=== PATIENT | male | born 1950 | race Hispanic/Latino ===

== ENCOUNTER 2020-10-06 10:40 | Emergency (ER) | payer OTHER ==
[2020-10-06 11:00] LABS: BILIRUBIN,URINE Negative (NEGATIVE); COLOR,URINE Yellow (YELLOW); GLUCOSE, URINE (UA) Negative (NEGATIVE); KETONES,URINE 15 mg/dL (NEGATIVE); LEUKOCYTE ESTERASE ,URINE Negative (NEGATIVE); NITRATE,URINE Negative (NEGATIVE); OCCULT BLOOD,URINE Negative (NEGATIVE); PROTEIN,URINE Negative (NEGATIVE); UROBILINOGEN,URINE 0.2 mg/dL (0.2-1.0)
[2020-10-06 11:16] LABS: APPEARANCE,URINE CLEAR (CLEAR)
[2020-10-06] MEDS ORDERED: KETOROLAC TROMETHAMINE 30MG/ML ONE ×2 (11:21→11:27)
[2020-10-06 11:36] LABS: BACTERIA,URINE Few /HPF (None Seen)
[2020-10-06 11:37] LABS: RBC,URINE 0-1 /HPF (0-1); SQUAMOUS EPITHELIAL CELL,UR 0-2 /HPF (0-2); WBC,URINE 0-1 /HPF (0-1)
[2020-10-06 11:41] LABS: BASOPHILS % (AUTO) 0.6 % (0.0-5.0); EOSINOPHILS % (AUTO) 6.9 % (0.0-8.0); MEAN CORPUSCULAR HEMOGLOBIN 33.3 pg (27.0-33.0); MEAN CORPUSCULAR HGB CONC 34.9 g/dL (32.0-36.0); MEAN CORPUSCULAR VOLUME 95.6 fL (79-99); NEUTROPHILS % (AUTO) 67.3 % (40.0-77.0); PLATELET COUNT (AUTO) 197 K/uL (130-400); WHITE BLOOD COUNT (AUTO) 8.3 K/uL (4.8-10.8)
[2020-10-06 11:51] LABS: POTASSIUM 4.7 mmol/L (3.5-5.1)
[2020-10-06] MEDS ORDERED: IOHEXOL 350 MG/ML 100ML INFUS..BTL IV ONE (11:59)
== END 2020-10-06 13:29 | disposition home or self-care (01) ==
LOC: EDH 10:40
DX: K57.32 Diverticulitis of large intestine without perforation or abscess without bleeding (principal); M54.5 Low back pain; F44.5 Conversion disorder with seizures or convulsions; Z72.0 Tobacco use
CPT/HCPCS: 36415; 72110; 74177; 80048; 81001; 84484; 85025; 93005; 96372; 99285; J1885 ×2; Q9967

== ENCOUNTER 2021-03-23 10:58 | Emergency (ER) | payer OTHER ==
[~2021-03-23] VITALS: Ht 167.6 cm; Wt 81.6 kg
[2021-03-23 11:17] VITALS: BP 135/70
[2021-03-23] MEDS ORDERED: HYDROCODONE/ACETAMINOPHEN 5/325 MG TAB PO SCH (12:00)
[2021-03-23] MEDS ORDERED: CEPH500B PO (12:56)
[2021-03-23] MEDS ORDERED: CEPHALEXIN 500 MG CAPSULE PO ONE (13:00)
[2021-03-23 13:38] VITALS: BP 152/80
== END 2021-03-23 13:39 | disposition home or self-care (01) ==
LOC: EDH 10:58
DX: S61.412A Laceration without foreign body of left hand, initial encounter (principal); L03.114 Cellulitis of left upper limb; S09.92XA Unspecified injury of nose, initial encounter; G40.909 Epilepsy, unspecified, not intractable, without status epilepticus; W01.0XXA Fall on same level from slipping, tripping and stumbling without subsequent striking against object, initial encounter; Y93.89 Activity, other specified; Y92.89 Other specified places as the place of occurrence of the external cause; Y99.8 Other external cause status
CPT/HCPCS: 70450; 73130

== ENCOUNTER → 2022-11-20 | Outpatient (CLI) | payer OTHER ==
[~2022-11-20] MED LIST: CEPH500B PO
== END | disposition home or self-care (01) ==
LOC: RAH 13:49
PROVIDERS: ATTEND Internal Medicine Cardiovascular Disease
DX: Z13.6 Encounter for screening for cardiovascular disorders (principal); R93.1 Abnormal findings on diagnostic imaging of heart and coronary circulation
CPT/HCPCS: 75571

== ENCOUNTER 2024-09-18 20:54 | Emergency (ER) | payer OTHER ==
[~2024-09-18] VITALS: Ht 167.6 cm; Wt 80.3 kg
[~2024-09-18 20:54] MED LIST changes: +ACET-2079 PO; +AMLO-257 PO; -CEPH500B PO; +DICL20GE TP; +PHEN200C5 PO
--- NOTE | 2024-09-18 21:24 | EKG ---
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
--- NOTE | 2024-09-18 21:28 | ERN ---
ED Note History of Present Illness Stated Complaint: C/O FATIGUE,NO APETITE,N X V, DIARRHEA ONSET YESTE Chief Complaint: Weakness Time Seen by MD: 20:57 Time Seen by Midlevel: 20:57 Dictation: Patient is a 73-year-old male with a history of TBI, seizures, appendectomy, s/p cholecystectomy on Aug, 2024 5 in [facility] in [facility] by DR. Neris Mata. Who presents to the emergency department with complaints of right upper abdominal pain, dizziness, fatigue, decreased appetite onset two days ago. Patient reports nonbloody vomiting, nonbloody diarrhea x2. Reports some nasal congestion. Denies any fevers. Allergies: Coded Allergies: No Known Allergies (Unverified Allergy, Unknown, 10/06/20) Home Meds Active Scripts Acetaminophen with Codeine (Acetaminophen-Cod #3 Tablet) 1 Each Tablet, 1 EACH PO Q4HPRN PRN for PAIN LEVEL 7 TO 10 for 10 Days, #15 TAB Prov:WINNIE ANNE HANDBELL CHOIR DIRECTOR 01/22/23 Reported Medications Diclofenac Sodium (Voltaren Arthritis Pain) 20 Gm Gel..gram., 4 GM TP Q4HPRN PRN for BACK PAIN 01/05/23 Amlodipine Besylate (Amlodipine Besylate) 5 Mg Tablet, 5 MG PO BID, TAB 01/05/23 Phenytoin Sodium Extended (Phenytoin Sodium Extended) 200 Mg Capsule, 200 MG PO BID, CAP 01/05/23 Past Medical History Past Medical History: Hypertension, Seizure, Other Additional Past Medical Hx: HX OF TBI Surgical History: Cholecystectomy Family History: Negative Social History: Negative RN Note Reviewed/Agreed w/PFSH: Yes Review of System Dictation Constitutional: Negative for fever,chills, and weight loss Eyes: Negative for injury, pain,redness, and discharge ENT: Negative for injury,pain or swelling possible for nasal congestion Cardiovascular: Negative for chest pain, palpitations, and edema Respiratory: Negative for shortness of breath, , and wheezing, positive for cough Abdomen/GI: Negative for and constipation positive for abdominal pain, nausea, vomiting, diarrhea Back: Negative for injury and pain : Negative for injury, bleeding and discharge MS/Extremity: Negative for injury and deformity Skin: Negative for rash, and discoloration Neuro: Negative for headache,, numbness, tingling, and seizure positive for weakness Psych: Negative for suicide ideation, homicidal ideation, and hallucinations Initial Vital Sign VS Vital Signs Date Time Temp Pulse Resp B/P (MAP) Pulse Ox O2 Delivery O2 Flow Rate FiO2 09/18/24 20:57 98.2 88 20 113/76 96 Room Air Physical Exam Dictation Vital Signs reviewed General Appearance: Alert, oriented x 3, no acute distress, well developed, nourished. Head and Face: non-traumatic. Eyes: PERRL, pink conjunctivas, eyelid no trauma, anterior chamber with arcus senilis. Ears: Pinnas intact and no signs of trauma or erythema ear canals clear and no discharge TM no erythema Nose: No discharge, no bleeding. Oropharynx: Mouth normal, tongue pink. pharynx clear,no erythema, tonsils no exudates, no abscesses noted, mucous membrane moist Neck: Supple, non-tender, no thyromegaly, no masses, no JVD, no bruits Breast:Deferred Chest:No tenderness, no crepitus, no paradoxical movement, no retractions Lungs:Clear, well-ventilated, symmetric, no rales, no wheezing, no rhonchi, no stridor, good breath sounds bilaterally Heart: Regular rate, regular rhythm, no murmur, no gallops Vascular: no peripheral edema, Abdomen: Soft, positive bowel sounds, nondistended, no guarding, Right upper abdominal tenderness no rebound, no masses no hepatomegaly, no splenomegaly, no Rodney's sign, no hernias. Rectal: Deferred Genital: Deferred Neurological: Normal speech, motor function intact, sensory function intact Musculoskeletal: Neck nontender, full range of motion, back nontender, full range of motion, Extremities: nontender, full range of motion Skin: Color pink, dry, no turgor, no rash, no lacerations, no abrasions, no contusions. Gallbladder surgery wound noted with Steri-Strips, no drainage or erythema, no warmth to touch, Lymphatic: Deferred Results (Laboratory/Radiology) Laboratory/Radiology Laboratory Tests Test 09/18/24 21:12 09/18/24 21:49 09/18/24 22:19 09/18/24 22:25 Urine Color LIGHT-YELLOW (YELLOW) Urine Appearance CLEAR (CLEAR) Urine pH 5.5 (5.0-8.0) Urine Specific [place] 1.037 (1.001-1.031) Urine Protein NEGATIVE mg/dL (NEGATIVE) Urine Glucose (UA) NEGATIVE mg/dL (NEGATIVE) Urine Ketones NEGATIVE mg/dL (NEGATIVE) Urine Occult Blood NEGATIVE (NEGATIVE) Urine Nitrate NEGATIVE (NEGATIVE) Urine Bilirubin NEGATIVE mg/dL (NEGATIVE) Urine Urobilinogen 0.2 mg/dL (0.2-1.0) Urine Leukocyte Esterase NEGATIVE Ivy/uL Prothrombin Time 11.6 SEC (9.6-11.6) Prothromb Time International Ratio 1.04 (0.85-1.15) Activated Partial Thromboplast Time 25.2 SEC (26.3-35.5) L Troponin I High Sensitivity 5 ng/L (4-75) White Blood Count 7.5 K/uL (4.8-10.8) Red Blood Count 3.83 MIL/uL (4.50-6.20) L Hemoglobin 12.7 g/dL (14.0-18.0) L Hematocrit 36.7 % (42-54) L Mean Corpuscular Volume 95.8 fL (79-99) Mean Corpuscular Hemoglobin 33.2 pg (27.0-33.0) H Mean Corpuscular Hemoglobin Concent 34.6 g/dL (32.0-36.0) Red Cell Distribution Width 13.4 % (11.0-15.5) Platelet Count 227 K/uL (130-400) Mean Platelet Volume 9.4 fL (7.5-10.5) Immature Granulocyte % (Auto) 0.3 % (0-1) Neutrophils (%) (Auto) 52.0 % (40.0-77.0) Lymphocytes (%) (Auto) 33.6 % (21.0-51.0) Monocytes (%) (Auto) 9.8 % (3.0-13.0) Eosinophils (%) (Auto) 3.9 % (0.0-8.0) Basophils (%) (Auto) 0.4 % (0.0-5.0) Neutrophils # (Auto) 3.9 K/uL (1.8-7.7) Lymphocytes # (Auto) 2.5 K/uL (1.0-4.8) Monocytes # (Auto) 0.7 K/uL (0.1-1.0) Eosinophils # (Auto) 0.29 K/uL (0.00-0.70) Basophils # (Auto) 0.03 K/uL (0.00-0.20) Absolute Immature Granulocyte (auto 0.02 K/uL (0-1) Nucleated Red Blood Cells 0.0 % (0.0-0.19) Sodium Level 140 mmol/L (136-145) Potassium Level 3.7 mmol/L (3.5-5.1) Chloride Level 104 mmol/L (101-111) Carbon Dioxide Level 25 mmol/L (21-32) Blood Urea Nitrogen 12 mg/dL (7-18) Creatinine 0.8 mg/dL (0.5-1.3) Glomerular Filtration Rate Calc 93 mL/min (>90) Random Glucose 125 mg/dL (70-105) H Total Calcium 8.0 mg/dL (8.5-10.1) L Total Bilirubin 0.4 mg/dL (0.2-1.0) Direct Bilirubin 0.1 mg/dL (0.0-0.3) Aspartate Amino Transf (AST/SGOT) 21 U/L (10-37) Alanine Aminotransferase (ALT/SGPT) 21 U/L (12-78) Alkaline Phosphatase 120 U/L (50-136) Total Creatine Kinase 70 U/L (21-232) # Total Protein 6.2 g/dL (6.0-8.3) Albumin 2.9 g/dL (3.5-5.0) L Lipase 80 U/L (16-77) H Influenza Type A Antigen Negative For Type A Influenza Type B Antigen Negative For Type B SARS-CoV-2 Antigen (Rapid) PRESUMPTIVE NEGATIVE REASON: ruq Abdominal Pain s/p faith ORDERING PHYSICIAN: AGUEDA URIAS TOOL LIAISON PROCEDURE: ABD PEL W - CT ABDOMEN/PELVIS W/CONTRAST CT ABDOMEN/PELVIS W/CONTRAST HISTORY: Abdominal pain COMPARISON: 01/05/2023 TECHNIQUE: Multiple sequential axial images of the abdomen and pelvis were obtained from the dome of the diaphragm through symphysis pubis. Patient was given 75 cc of Omnipaque through intravenous route. Oral contrast was not given. FINDINGS: No pleural effusion is seen bilaterally. There are interstitial fibrosis. There is no evidence of parenchymal disease or pulmonary nodule of the visualized lower lungs. Degenerative changes of the thoracolumbar spine are present. The heart is not enlarged. Liver is borderline enlarged measuring 16 cm. Gallbladder has been removed by history. Small amount of fluid is seen in the gallbladder fossa. Intrabiliary stent is seen. There may also be small pancreatic stent. Mild small bowel dilatation is seen with fluid-filled may be related to enteritis. There is diverticulosis. The liver, spleen, adrenal glands and pancreas are unremarkable. There is no evidence of hydronephrosis bilaterally. No evidence of renal stone is seen. Fecal material is seen in the colon. There are normal size retroperitoneal and mesenteric lymph nodes. No ascites is seen. Atherosclerotic changes are present. Appendix is not well seen limiting evaluation. Pelvic sidewalls are symmetric bilaterally. Bladder is well distended without wall thickening. IMPRESSION: 1. Gallbladder has been removed by history. Small amount of fluid is seen in the gallbladder fossa. Intrabiliary stent is seen. There may also be small pancreatic stent. Mild small bowel dilatation is seen with fluid-filled may be related to enteritis. There is diverticulosis. CT was performed with one or more following dose reduction techniques: automated exposure control, adjustment of the mA and kv according to patient's size, or use of a iterative reconstruction technique. Labs Reviewed?: Yes EKG: (+) rhythm (Sinus rhythm) EKG Comment: EKG 09/18/20242121 ventricular rate 79, regular rate and rhythm, normal sinus rhythm, no STEMI ED Course ED Course Orders Procedure Category Date Status Time Troponin I High LAB 09/18/24 Complete Sensitivity 21:12 Urinalysis Profile LAB 09/18/24 Complete 21:12 12 Lead Ekg Tracing- EKG 09/18/24 Complete Technical 21:12 0.9%Nacl 1000ml (Ns PHA 09/18/24 Complete 1000ml) 21:30 Morphine 4mg Syg PHA 09/18/24 Complete (Morphine 4mg Syg) 21:30 Ondansetron 4mg Inj PHA 09/18/24 Complete (Zofran 4mg Inj) 21:30 Pantoprazole 40mg Inj PHA 09/18/24 Complete (Protonix 40mg Inj 21:30 Chest 1vw RAD 09/18/24 Resulted 21:12 Covid19 (Sars Antigen LAB 09/18/24 Complete Rapid) 21:12 Influenza Type A & B, LAB 09/18/24 Complete Rapid 21:12 Pt And Ptt LAB 09/18/24 Complete 21:36 Basic Metabolic Panel LAB 09/18/24 Complete 22:00 Creatine Kinase, Total LAB 09/18/24 Complete 22:00 Hepatic Function Panel LAB 09/18/24 Complete 22:00 Lipase LAB 09/18/24 Complete 22:00 Cbc With Differential LAB 09/18/24 Complete 22:12 Ct Abdomen/Pelvis CT 09/18/24 Resulted W/Contrast 22:35 Iohexol (Omnipaque) PHA 09/18/24 Complete 23:12 Current Medications Medications (Trade) Dose Ordered Sig/Jessi Route PRN Reason Start Time Stop Time Status Last Admin Dose Admin Iohexol (Omnipaque) 75 ml STK-MED ONCE IV 09/18/24 23:12 09/18/24 23:12 DC Morphine Sulfate (morPHINE 4MG SYG) 4 mg ONCE ONCE IVP 09/18/24 21:30 09/18/24 21:31 DC 09/18/24 21:58 Ondansetron HCl (zoFRAN 4MG INJ) 4 mg ONCE ONCE IVP 09/18/24 21:30 09/18/24 21:31 DC 09/18/24 21:58 Pantoprazole Sodium (PROTonix 40MG INJ) 40 mg ONCE ONCE IVP 09/18/24 21:30 09/18/24 21:31 DC 09/18/24 21:58 Sodium Chloride 1,000 ml @ 0 mls/hr ONCE ONCE IV 09/18/24 21:30 09/18/24 21:31 DC 09/18/24 21:58 Vital Signs Date Time Temp Pulse Resp B/P (MAP) Pulse Ox O2 Delivery O2 Flow Rate FiO2 09/18/24 20:57 98.2 88 20 113/76 96 Room Air Medical Decision Making MDM Patient is a 73-year-old male with a history of TBI, seizures, appendectomy, s/p cholecystectomy on Aug, 2024 5 in [facility] in [facility] by DR. Neris Mata. Who presents to the emergency department with complaints of right upper abdominal pain, dizziness, fatigue, decreased appetite onset two days ago. Patient reports nonbloody vomiting, nonbloody diarrhea x2. Reports some nasal congestion. Denies any fevers. CBC showed no leukocytosis, mild normocytic anemia, chemistry showed no electrolyte imbalance, mild elevated lipase, negative troponin. Chest x-ray unremarkable. CT showed Gallbladder Small amount of fluid is seen in the gallbladder fossa. Intrabiliary stent is seen. There may also be small pancreatic stent. Mild small bowel dilatation is seen with fluid- filled may be related to enteritis. There is diverticulosis. urinalysis unremarkable. labs and imagine discussed with patient who agrees to follow up with pcp and phytopathology teacher which he already has an appointment the first week in sep. Patient currently reports he feels better, non toxic appearance, agrees to be discharge. Differential diagnosis: Gastroenteritis, upper respiratory infection, bowel obstruction, postop complication Need for hospitalization: Patient does not meet criteria for hospitalization. There are no social concerns with this patient. DX & DISP Disposition: Discharge Departure Impression: Primary Impression: Gastroenteritis Additional Impressions: Viral illness, History of cholecystectomy, Anemia, E levated lipase Condition: Stable Scripts Dicyclomine HCl (Bentyl) 20 Mg Tab 1 TAB PO BID for irritable bowel symptoms for 30 Days, #60 TAB 0 Refills Prov: AGUEDA URIASP 09/19/24 Ondansetron (Ondansetron Odt) 4 Mg Tab.rapdis 4 MG PO Q6HPRN PRN for nausea, #16 TAB 0 Refills Prov: AGUEDA URIAS 09/19/24 Additional Instructions: Please follow up with your phytopathology teacher as soon as possible. And your primary doctor. Please return to ER if symptoms worsen. FOLLOW-UP WITH PRIMARY CARE PROVIDER IN 1 TO 2 DAYS. TAKE MEDICATIONS DIRE CTED HERE IN THE EMERGENCY ROOM. OKAY TO CONTINUE HOME MEDICATIONS UNLESS OTHERWISE DISCUSSED DURING YOUR VISIT IN THE EMERGENCY ROOM TODAY. RETURN TO YOUR NEAREST EMERGENCY ROOM IF SYMPTOMS WORSEN OR IF THERE IS NO IMPROVEMENT. CALL 911 IF YOU NEED IMMEDIATE ASSISTANCE. TAKE TYLENOL OR MOTRIN [id number] NEEDED AND IF NO CONTRAINDICATIONS ARE PRESENT. INCREASE ORAL HYDRATION. A WOUND CULTURE OR URINE CULTURE WAS ORDERED HERE IN THE EMERGENCY ROOM DEPARTMENT PLEASE FOLLOW-UP WITH PRIMARY CARE PROVIDER AND ADVISE THEM TO GET REPEAT PORTS FROM OUR FACILITY. IF YOU HAD ANY AMAN WRAP/SPLINTS THAT WERE APPLIED HERE, PLEASE DO NOT REMOVE THEM UNTIL YOU SEE YOUR PRIMARY CARE OR SPECIALTY. Referrals: MELVI MELGAR (PCP) Time of Disposition: 00:41 I have reviewed the case, and I agree with, Diagnosis and Plan AGUEDA URIAS Sep 18, 2024 21:28
[2024-09-18] MEDS: morPHINE 4 MG SYG IVP ONE (21:58)
[2024-09-18] MEDS: PANTOPrazole 40 MG/VIAL IVP ONE (21:58)
[2024-09-18] MEDS: ondanSETRON 4MG INJ IVP ONE (21:58)
[2024-09-18] MEDS: 0.9%NACL 1000ML 1,000 ML IV ONE (21:58)
--- NOTE | 2024-09-18 22:01 | HMCIMG ---
CHEST 1VW CLINICAL HISTORY: sob COMPARISON: 01/22/2023 TECHNIQUE: Single view of the chest was obtained. FINDINGS: Lungs are clear. The cardiac size and mediastinum are unremarkable. The bony structures are within normal limits. IMPRESSION: No acute cardiopulmonary process identified.
[2024-09-18 22:06] LABS: INR 1.04 (0.85-1.15); PROTHROMBIN TIME 11.6 SEC (9.6-11.6)
[2024-09-18 22:08] LABS: PARTIAL THROMBOPLASTIN TIME 25.2 SEC (26.3-35.5)
[2024-09-18 22:27] LABS: BASOPHILS # (AUTO) 0.03 K/uL (0.00-0.20); BASOPHILS % (AUTO) 0.4 % (0.0-5.0); EOSINOPHILS # (AUTO) 0.29 K/uL (0.00-0.70); EOSINOPHILS % (AUTO) 3.9 % (0.0-8.0); HEMATOCRIT 36.7 % (42-54); IMMATURE GRANULOCYTE ABSOLUTE 0.02 K/uL (0-1); LYMPHOCYTES # (AUTO) 2.5 K/uL (1.0-4.8); LYMPHOCYTES % (AUTO) 33.6 % (21.0-51.0); MEAN CORPUSCULAR HEMOGLOBIN 33.2 pg (27.0-33.0); MEAN CORPUSCULAR HGB CONC 34.6 g/dL (32.0-36.0); MEAN CORPUSCULAR VOLUME 95.8 fL (79-99); MONOCYTES # (AUTO) 0.7 K/uL (0.1-1.0); MONOCYTES % (AUTO) 9.8 % (3.0-13.0); NEUTROPHILS # (AUTO) 3.9 K/uL (1.8-7.7); PLATELET COUNT (AUTO) 227 K/uL (130-400); RED BLOOD CELL COUNT(AUTO) 3.83 MIL/uL (4.50-6.20); RED CELL DISTRIBUTION WIDTH 13.4 % (11.0-15.5); WHITE BLOOD COUNT (AUTO) 7.5 K/uL (4.8-10.8)
[2024-09-18 22:40] LABS: ALBUMIN 2.9 g/dL (3.5-5.0); BILIRUBIN,DIRECT 0.1 mg/dL (0.0-0.3); BILIRUBIN,TOTAL 0.4 mg/dL (0.2-1.0); CREATININE 0.8 mg/dL (0.5-1.3); POTASSIUM 3.7 mmol/L (3.5-5.1); TOTAL PROTEIN, SERUM 6.2 g/dL (6.0-8.3)
[2024-09-18 22:50] LABS: INFLUENZA TYPE A Negative For Type A (NEGATIVE); INFLUENZA TYPE B Negative For Type B (NEGATIVE)
[2024-09-18 22:58] LABS: COVID19 (SARS ANTIGEN RAPID) PRESUMPTIVE NEGATIVE (NEGATIVE)
[2024-09-18] MEDS ORDERED: IOHEXOL-350 75 ML VIAL IV ONE (23:12)
--- NOTE | 2024-09-18 23:54 | HMCIMG ---
CT ABDOMEN/PELVIS W/CONTRAST HISTORY: Abdominal pain COMPARISON: 01/05/2023 TECHNIQUE: Multiple sequential axial images of the abdomen and pelvis were obtained from the dome of the diaphragm through symphysis pubis. Patient was given 75 cc of Omnipaque through intravenous route. Oral contrast was not given. FINDINGS: No pleural effusion is seen bilaterally. There are interstitial fibrosis. There is no evidence of parenchymal disease or pulmonary nodule of the visualized lower lungs. Degenerative changes of the thoracolumbar spine are present. The heart is not enlarged. Liver is borderline enlarged measuring 16 cm. Gallbladder has been removed by history. Small amount of fluid is seen in the gallbladder fossa. Intrabiliary stent is seen. There may also be small pancreatic stent. Mild small bowel dilatation is seen with fluid-filled may be related to enteritis. There is diverticulosis. The liver, spleen, adrenal glands and pancreas are unremarkable. There is no evidence of hydronephrosis bilaterally. No evidence of renal stone is seen. Fecal material is seen in the colon. There are normal size retroperitoneal and mesenteric lymph nodes. No ascites is seen. Atherosclerotic changes are present. Appendix is not well seen limiting evaluation. Pelvic sidewalls are symmetric bilaterally. Bladder is well distended without wall thickening. IMPRESSION: 1. Gallbladder has been removed by history. Small amount of fluid is seen in the gallbladder fossa. Intrabiliary stent is seen. There may also be small pancreatic stent. Mild small bowel dilatation is seen with fluid-filled may be related to enteritis. There is diverticulosis. CT was performed with one or more following dose reduction techniques: automated exposure control, adjustment of the mA and kv according to patient's size, or use of a iterative reconstruction technique.
[2024-09-19 00:35] LABS: APPEARANCE,URINE CLEAR (CLEAR); BILIRUBIN,URINE NEGATIVE (NEGATIVE); COLOR,URINE LIGHT-YELLOW (YELLOW); GLUCOSE, URINE (UA) NEGATIVE (NEGATIVE); KETONES,URINE NEGATIVE (NEGATIVE); LEUKOCYTE ESTERASE ,URINE NEGATIVE Leu/uL (NEGATIVE); NITRATE,URINE NEGATIVE (NEGATIVE); OCCULT BLOOD,URINE NEGATIVE (NEGATIVE); PH,URINE 5.5 (5.0-8.0); PROTEIN,URINE NEGATIVE (NEGATIVE); UROBILINOGEN,URINE 0.2 mg/dL (0.2-1.0)
[2024-09-19 00:36] LABS: ADD UA MICROSCOPIC NO
[2024-09-19] MEDS ORDERED: ONDA-243 PO (00:43)
[2024-09-19] MEDS ORDERED: DICY20TA2 PO (00:43)
[2024-09-19 01:08] VITALS: BP 115/65; PULSE 70; RESP 18; TEMP 98.1; O2SAT 96
== END 2024-09-19 01:09 | disposition home or self-care (01) ==
LOC: EDH 20:54
DX: K52.9 Noninfective gastroenteritis and colitis, unspecified (principal); Z20.822 Contact with and (suspected) exposure to COVID-19; B34.9 Viral infection, unspecified; D64.9 Anemia, unspecified; R74.8 Abnormal levels of other serum enzymes; R42 Dizziness and giddiness; I10 Essential (primary) hypertension; Z87.820 Personal history of traumatic brain injury; Z79.899 Other long term (current) drug therapy; Z90.49 Acquired absence of other specified parts of digestive tract
CPT/HCPCS: 99285; 74177; 96374; 71045; 96361; 96375 ×2; 87426; 82550; 80076; 84484; 80048; 83690; 85025; 85610; 85730; 87804 ×2; 81003; 36415; 93005; J7030; J2405; J2270; J2470; Q9967